=== PATIENT | male | born 1960 | race Caucasian/White ===

== ENCOUNTER 2017-11-24 06:36 | Emergency (ER) | payer SELFPAY ==
[2017-11-24] MEDS ORDERED: LISINOPRIL 20 MG TABLET PO ONE (07:02)
[2017-11-24] MEDS ORDERED: KETOROLAC 30 MG/ML VIAL IM ONE (07:02)
--- NOTE | 2017-11-24 07:21 | Emergency Department Record ---
History of Present Illness - General Chief Complaint: Neck Injury/Pain Stated Complaint: NECK PAIN Time Seen by Provider: 11/24/17 06:57 Source: Patient Mode of Arrival: Ambulatory Limitations: No limitations - History of Present Illness Initial Comments: The patient is here due to injuring his neck at work 30 minutes ago. He was pulling an a cart and the handle broke so he jerked back and twisted his neck and head. Now he is having posterior neck pain, a DAVILA, and mild posterior L shoulder pain. He did not fall or hit his head or have any direct impact to his head or neck. The patient denies any arm or leg weakness, numbness, tingling, visual changes or weakness. The patient does have a hx of HTN but has not taken his medicines in about a week. MD Complaint: Neck injury Onset/Timin -: Minutes(s) Place: Work Radiation: Left shoulder Severity scale (1-10): 9 Consistency: Constant Improves With: Remaining still Worsens With: Movement of extremity, Movement of neck Associated Symptoms: None Treatments Prior to Arrival: None - Related Data Home Medications Medication Instructions Recorded Confirmed Last Taken Lisinopril 20 mg PO DAILY 11/24/17 11/24/17 11/18/17 Previous Rx's Medication Instructions Recorded Cyclobenzaprine HCl [Flexeril] 10 mg PO TID PRN #20 tablet 11/24/17 Naproxen [Naprosyn] 500 mg PO BID #14 tablet. 11/24/17 Allergies Allergy/AdvReac Type Severity Reaction Status Date / Time No Known Drug Allergies Allergy Verified 11/24/17 06:38 Travel Screening - Travel/Exposure Within Last 30 Days Have you traveled within the last 30 days?: No - Travel Symptoms Symptom Screening: None Review of Systems Constitutional: Denies: Chills, Fever Eyes: Denies: Eye discharge ENT: Denies: Congestion Respiratory: Denies: Cough, Dyspnea Past Medical History - SOCIAL HISTORY Smoking Status: Never smoker - RESPIRATORY Hx Respiratory Disorders: No - CARDIOVASCULAR Hx Cardio Disorders: Yes Hx Hypertension: Yes - NEURO Hx Neuro Disorders: No - GI Hx GI Disorders: No - Hx Genitourinary Disorders: No - ENDOCRINE Hx Endocrine Disorders: No - MUSCULOSKELETAL Hx Musculoskeletal Disorders: Yes Comment:: neck injury - PSYCH Hx Psych Problems: No - HEMATOLOGY/ONCOLOGY Hx Hematology/Oncology Disorders: No Family Medical History Any Significant Family History?: Yes Hx Cancer: Father Hx Heart Disease: Mother Physical Exam - General General Appearance: Alert, Oriented x3, Cooperative, No acute distress - Head Head exam: Atraumatic, Normocephalic, Normal inspection - Eye Eye exam: Normal appearance, PERRL, EOMI. negative: Conjunctival injection - Neck Neck exam: Normal inspection, Full ROM, Tenderness (There is posterior bilateral paraspinal tenderness bilaterally which does reproduce the pain.). negative: Lymphadenopathy, Meningismus - Respiratory Respiratory exam: Normal lung sounds bilaterally. negative: Respiratory distress - Cardiovascular Cardiovascular Exam: Regular rate, Normal rhythm, Normal heart sounds - Extremities Extremities exam: Normal inspection, Full ROM (There is normal ROM of both shoulders with no difficulty.), Normal capillary refill. negative: Tenderness - Neurological Neurological exam: Alert, Normal gait, Oriented X3. negative: Abnormal gait, Motor sensory deficit Course Vital Signs 11/24/17 06:43 Temperature 97.7 F Pulse Rate [ 83 Pulse Ox Probe] Respiratory 18 Rate Blood Pressure 193/133 [Left Arm] Pulse Ox 97 - Reevaluation(s) Reevaluation #1: The patient is doing a lot better at this time. His pain is resolving and he is able to move his neck much better with much less pain. 11/24/17 08:04 Reevaluation #2: The patient is doing well. His pain is much improved and he has much improved ROM of his neck. I did discuss the xray results with the patient and the need for F/U if not better in 3 days. 11/24/17 09:19 Medical Decision Making - Data Complexity MDM Data: X-Ray Ordered and/or Reviewed - Radiology Data Radiology results: Report reviewed (Head CT: Neg for acute changes. Cervical Spine: Neg for acute fx or dislocation.) Disposition Disposition: Discharge Clinical Impression: Cervical strain, acute Qualifiers: Encounter type: initial encounter Qualified Code(s): S16.1XXA - Strain of muscle, fascia and tendon at neck level, initial encounter Disposition: Home, Self-Care Condition: (2) Stable Instructions: Cervical Sprain (ED) Additional Instructions: Please rest today and take the Naprosyn and Flexeril as directed. Please take today off work and see your work Occupational Health provider or your family doctor if not betterin 3 days. Return to the ER for any worsening symptoms. Please restart your BP medicines. Prescriptions: Cyclobenzaprine HCl [Flexeril] 10 mg PO TID PRN #20 tablet PRN Reason: Pain Naproxen [Naprosyn] 500 mg PO BID #14 tablet.dr Forms: Patient Portal Access Time of Disposition: 09:22 Quality - Quality Measures Quality Measures: N/A - Blood Pressure Screening View Details: Yes Does Patient Have Any of the Following: Active Dx of HTN Blood Pressure Classification: Hypertensive Reading Systolic Measurement: 166 Diastolic Measurement: 103 Screening for High Blood Pressure: Patient Exclusion, Hx of HTN [[id number]]
--- NOTE | 2017-11-26 14:40 | CT SCAN REPORT ---
EXAM: HEAD CT HISTORY: HEAD ANC NECK INJURY, TRAUMA, POSTERIOR HEADACHE WITH BLURRED VISION. TECHNIQUE: Axial CT scan of the head was performed without IV contrast. Comparison: None. Encounter: Initial. FINDINGS: No definite acute intracranial hemorrhage identified. No focal mass effect or midline shift apparent. Mild generalized atrophy is present. No definite acute infarct or intracranial mass lesion seen. Some deviation of the nasal septum to the left. A cyst or polyp in the floor of the left maxillary antrum. IMPRESSION: 1. NO DEFINITE ACUTE INTRACRANIAL HEMORRHAGE OR FOCAL MASS EFFECT IDENTIFIED. 2. DEVIATION OF THE NASAL SEPTUM TO THE LEFT. 3. CYST OR POLYP IN THE FLOOR OF THE LEFT MAXILLARY ANTRUM. JOB NUMBER: [id number] MTDD
--- NOTE | 2017-11-26 14:44 | RADIOLOGY REPORT ---
EXAM: CERVICAL SPINE HISTORY: TRAUMA, MID POSTERIOR NECK PAIN. TECHNIQUE: Seven views of the cervical spine were obtained. Comparison: None. Encounter: Initial. FINDINGS: There is exuberant hypertrophic spurring along the anterior aspect of much of the cervical spine. A somewhat linear bony density posterior to the spinous process of T1 is likely some ligamentous calcification. The cervical intervertebral disk spaces are mildly narrowed at the second through the fifth cervical interspaces. No definite fracture of the cervical spine identified. IMPRESSION: 1. PROMINENT SPURRING ANTERIORLY IN THE CERVICAL SPINE. 2. SMALL BONY DENSITY POSTERIOR TO THE SPINOUS PROCESS OF T1 IS LIKELY LIGAMENTOUS CALCIFICATION. 3. NARROWING OF MULTIPLE CERVICAL INTERSPACES. 4. NO DEFINITE FRACTURE OR PREVERTEBRAL SOFT TISSUE SWELLING SEEN IN THE CERVICAL SPINE. [facility]: [id number] [facility]
== END 2017-11-24 09:39 | disposition home or self-care (01) ==
LOC: ER 06:36
DX: S16.1XXA Strain of muscle, fascia and tendon at neck level, initial encounter (principal); R51 Headache; I10 Essential (primary) hypertension; X50.1XXA Overexertion from prolonged static or awkward postures, initial encounter; Y99.0 Civilian activity done for income or pay
CPT/HCPCS: 99283; 96372; 99284; 72050; 70450; J1885